=== PATIENT | female | born 1960 | race Caucasian/White ===

== ENCOUNTER 2016-08-11 18:08 | Emergency (ER) | payer MEDICAID ==
[~2016-08-11] VITALS: Ht 162.6 cm; Wt 66.0 kg
[~2016-08-11 18:08] MED LIST: AMLO2.5T45 PO; ASPI-1035 PO; DOCU-150 PO; HYDR-4134 PO; INSUL SUBCUT; LOSA50TA20 PO; OMEP20CA10 PO
[2016-08-11 18:10] VITALS: BP 0/0
== END 2016-08-11 18:10 | disposition expired ==
LOC: ER 18:10
DX: I46.9 Cardiac arrest, cause unspecified (principal); E11.9 Type 2 diabetes mellitus without complications; I10 Essential (primary) hypertension; N28.9 Disorder of kidney and ureter, unspecified; Z86.73 Personal history of transient ischemic attack (TIA), and cerebral infarction without residual deficits
CPT/HCPCS: 92950; 99285